=== PATIENT | male | born 1985 | race Caucasian/White ===

== ENCOUNTER 2023-01-04 19:19 | Emergency (ER) | payer OTHER, SELFPAY ==
[2023-01-04] VITALS (8 sets, daily range): BP systolic 95–124; BP diastolic 47–74; PULSE 98–103; RESP 17–21; TEMP 37; O2SAT 95–98; BMI 16.5
--- NOTE | 2023-01-04 19:35 | PC.NURSE ---
this nurse triaged pt for ED. pt placed in room 7, put on a monitor and report given to RENETTA Keenan
[2023-01-04 19:59] LABS: Basophils % 0.4 % (0.1-2.0); Eosinophils % 0.2 % (0.1-12.0); Lymphocytes # 0.7 K/mm3 (0.7-4.5); Lymphocytes % 6.1 % (10-50); Mean Corpuscular HGB Conc 30.6 g/dL (31.8-35.4); Mean Corpuscular Hemoglobin 17.9 pg (27.0-31.2); Mean Corpuscular Volume 58.6 fl (80-94); Monocytes # 0.5 K/mm3 (0.1-1.0); Monocytes % 4.6 % (1.7-9.3); Neutrophils # 9.5 K/mm3 (1.8-7.8); Neutrophils % 88.8 % (37.0-80.0); Platelet Count 467 K/mm3 (142-424); Red Blood Count 3.47 M/mm3 (4.60-6.20); Red Cell Distribution Width 16.9 % (11.5-17.5); White Blood Count 10.7 K/mm3 (4.8-10.8)
[2023-01-04 20:05] LABS: Alanine Aminotransferase 36 U/L (12-78); Albumin Level 3.5 g/dl (3.5-5.0); Albumin/Globulin Ratio 0.9 (1.1-1.8); Alkaline Phosphatase 162 U/L (38-126); Anion Gap 19.6 mEq/L (5-15); Aspartate Amino Transferase 32 U/L (17-59); Bilirubin,Total 0.3 mg/dl (0.2-1.3); Blood Urea Nitrogen 13 mg/dl (9-20); Calcium 7.9 mg/dl (8.4-10.2); Carbon Dioxide 24 mmol/L (22.0-30.0); Chloride 90 mmol/L (98-107); Creatinine Clearance Estimated 101 mL/min (50-200); Estimated Glomerular Filt Rate 110 ml/min (>60); GFR (African American) 133 ML/MIN (>60); Globulin 3.8 g/dL (1.3-3.2); Glucose 340 mg/dl (74-100); Potassium 3.6 mmoL/L (3.5-5.1); Sodium 130 mmol/L (136-145); Total Protein,Serum 7.3 g/dl (6.3-8.2)
[2023-01-04 20:09] LABS: Lactic Acid 2.2 mmol/L (0.7-2.1)
[2023-01-04 20:10] LABS: C-Reactive Protein 197.7 mg/L (0-4)
[2023-01-04 20:13] LABS: Hematocrit 20.3 % (42.0-52.0); Hemoglobin 6.2 g/dL (14.1-18.0)
[2023-01-04 20:14] LABS: MANUAL DIFFERENTIAL MANUAL DIFFERENTIAL (MANUAL DIFF)
[2023-01-04 20:23] LABS: Procalcitonin 0.169 ng/mL (0.0-2.0)
--- NOTE | 2023-01-04 20:27 | CT_ITS ---
PROCEDURE INFORMATION: Exam: CT Abdomen And Pelvis With Contrast Exam date and time: 01/04/2023 8:57 PM Age: 37 years old Clinical indication: Nausea and vomiting; Prior surgery; Surgery date: 1-6 months; Surgery type: Colon resection 2022; Patient HX: HX colon cancer; Additional info: N/v/d TECHNIQUE: Imaging protocol: Computed tomography of the abdomen and pelvis with contrast. Radiation optimization: All CT scans at this facility use at least one of these dose optimization techniques: automated exposure control; mA and/or kV adjustment per patient size (includes targeted exams where dose is matched to clinical indication); or iterative reconstruction. Contrast material: ISOVUE; Contrast volume: 75 ml; Contrast route: IV; REPORTING DATA: Count of CT and Cardiac NM exams in prior 12 months: This patient has received 0 known CTs and 0 known cardiac nuclear medicine studies in the 12 months prior to the current study. COMPARISON: No relevant prior studies available. FINDINGS: Liver: Normal. No mass. Gallbladder and bile ducts: Post cholecystectomy change. Pancreas: Normal enhancement. No ductal dilation. Spleen: There are multiple splenic calcifications likely on the basis of prior granulomatous exposure. Adrenal glands: No mass. Kidneys and ureters: 14 mm left renal cyst. No hydronephrosis. Stomach and bowel: Postprocedural changes status post partial colectomy. 5.8 cm fat containing left abdominal peristomal hernia. No obstruction. Appendix: No evidence of appendicitis. Intraperitoneal space: No significant fluid collection. No free air. Vasculature: No abdominal aortic aneurysm. Lymph nodes: No enlarged lymph nodes. Urinary bladder: Urinary bladder wall is thickened measuring 9 mm. Reproductive: No acute abnormality. Bones/joints: No acute fracture. Soft tissues: Fat stranding within the inferior left paracolic gutter extending into the pelvis and presacral space where there indistinct fat planes. Extensive subcutaneous stranding involving the medial gluteal soft tissues which is partially visualized. Partially visualized gynecomastia. IMPRESSION: 1. Fat stranding within the inferior left paracolic gutter extending into the pelvis and presacral space where there indistinct fat planes and also involving the upper midline gluteal soft tissues which may in part be postprocedural however would be difficult to exclude a superimposed infectious/inflammatory process or recurrent or residual neoplasm. Prior exams are not available for comparison. 2. Urinary bladder wall is thickened which may also be postprocedural however correlation with UA is recommended. 3. Extensive subcutaneous stranding involving the medial gluteal soft tissues which is partially visualized.
--- NOTE | 2023-01-04 20:28 | PC.NURSE ---
notified concepcion [facility]&H 6.2 20.3
[2023-01-04 20:33] LABS: Acetone, Serum (Rapid) None Detected (None Detect)
[2023-01-04 20:52] LABS: Erythrocyte Sedimentation Rate > 140 mm/hr (0-15)
[2023-01-04 21:00] LABS: Anisocytosis 1+; Hypochromasia 2+; Lymphocytes % 6 % (10-50); Microcytosis 3+; Monocytes % 5 % (2-9); Neutrophils % 89 % (42-76); Platelet Estimate Normal; Total Cells Counted 100
[2023-01-04 21:08] LABS: Coronavirus 19, PCR Not Detected (NotDetected); Influenza A, PCR Not Detected (NotDetected); Influenza B, PCR Not Detected (NotDetected)
--- NOTE | 2023-01-04 21:33 | PC.NURSE ---
Spoke with Bon in Pharmacy advising consult on vancomycin
--- NOTE | 2023-01-04 21:42 | HMH.EDSKAF ---
Discharge Plan Disposition Patient Disposition: Xfer Short-Term Hosp Prescriptions Prescriptions: No Action metformin 500 mg Tablet 1,000 mg PO BID Referrals Follow up/Referrals: Provider,Referral, MD [Primary Care Provider] - See instructions Clinical Impressions Clinical Impression: Xu's gangrene, Severe sepsis with acute organ dysfunction, Diabetes mellitus, Anemia Discharge ED Provider: Marysol (ED)Jacob Skin/Abscess/FB HPI General Chief complaint: Skin/Abscess/Foreign Body Stated complaint: cyst on tail Time Seen by Provider: 01/04/23 21:00 Mode of Arrival: Wheelchair Source of Information: Patient and Medical Record Limitations: No Limitations Description of Symptoms (Recalled from ER Triage Doc. by RN): pt c/o n/v/d, body aches, chills, fever ,and cyst on back. 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 Social History Smoking Status: Current every day smoker alcohol intake: never current occupational status: unemployed Travel in the last 8 weeks: Inside the [facility] ROS Obtained: Yes All systems reviewed & no additional complaints except as documented Physical Exam General General appearance: alert Head Head exam: normocephalic Eye Eye exam: Present other (pale conj); Absent scleral icterus ENT ENT exam: Present mucous membranes dry Neck Neck exam: Present trachea midline Respiratory Respiratory exam: Present normal lung sounds bilaterally; Absent respiratory distress Cardiovascular Cardiovascular exam: Present tachycardia Abdominal Exam Abdominal exam: Present soft and other (colostomy) Rectal Exam comment: draining abscess with extnesion to perineum and scrotal area - prob fourniers Neurological Exam Neurological exam: Present alert, oriented X3 and CN II-XII intact Skin Skin exam: Present other (abscess coccyx area ); Absent rash Medical Decision Making Medical Records Medical records reviewed: Yes I reviewed the patient's medical records. Thuan Inquiry Pt receiving controlled substance: No Vital Signs: 01/04/23 19:20 Temperature 98.6 F Temperature Source Oral Pulse Rate [Left] 102 H Respiratory Rate 21 Blood Pressure [Right Arm] 119/56 L Blood Pressure Mean [Right Arm] 77 02 Sat by Pulse Oximetry 98 Lab Data Lab results reviewed: Yes I reviewed the patient's lab results. Lab Results 01/04/23 19:41: SARS-CoV-2 (PCR) Not detected, Influenza A Untype (PCR) Not detected, Influenza Type B (PCR) Not detected 01/04/23 19:48: WBC 10.7, RBC 3.47 L, Hgb 6.2 L*, Hct 20.3 L*, MCV 58.6 L, MCH 17.9 L, MCHC 30.6 L, RDW 16.9, Plt Count 467 H, MPV 9.0, Neut % (Auto) 88.8 H, Lymph % (Auto) 6.1 L, [place] % (Auto) 4.6, Eos % (Auto) 0.2, Baso % (Auto) 0.4, Neut # (Auto) 9.5 H, Lymph # (Auto) 0.7, [place] # (Auto) 0.5, Eos # (Auto) 0.0, Baso # (Auto) 0.0, Total Counted 100, Neutrophils % (Manual) 89 H, Lymphocytes % (Manual) 6 L, Monocytes % (Manual) 5, Platelet Estimate Normal, RBC Morphology Not Reportable, Hypochromasia 2+, Anisocytosis 1+, Microcytosis 3+, ESR > 140 H 01/04/23 19:48: Sodium 130 L, Potassium 3.6, Chloride 90 L, Carbon Dioxide 24, Anion Gap 19.6 H, BUN 13, Creatinine 0.80, Estimated Creat Clear 101, Estimated GFR 110, Est GFR ( Amer) 133, Glucose
--- NOTE | 2023-01-04 21:53 | PC.NURSE ---
called for possible transfer
--- NOTE | 2023-01-04 21:54 | PC.NURSE ---
concepcion on phone with dr acosta @ [place]
--- NOTE | 2023-01-04 21:58 | PC.NURSE ---
Dr. Gregg informed nurse of accepted to by surgeon Dr. Moncada. reported that the patient needs to be at sooner rather than later becaue of the risk for deterioration.
--- NOTE | 2023-01-04 22:01 | PC.NURSE ---
spoke with Leo at [facility] who stated that their other EMS crew is out of [place] and wont return for at least another hour and a half. notified and ordered this nurse to call [facility].
--- NOTE | 2023-01-04 22:05 | PC.NURSE ---
spoke with lara at [facility] for weather check. stated will call back with update
--- NOTE | 2023-01-04 22:12 | PC.NURSE ---
[place] [facility] with [facility] accepted with flight time of 36 minutes
--- NOTE | 2023-01-04 22:24 | PC.NURSE ---
report called to Berta, battery charger nurse at ER
--- NOTE | 2023-01-04 23:01 | PC.NURSE ---
[facility] at bedside. Report given per Aminata.
--- NOTE | 2023-01-04 23:12 | PC.NURSE ---
[facility] at bedside with pt
[2023-01-04 23:55] LABS: Reflex Lactic Add Lactic Reflex
== END 2023-01-04 23:21 | disposition short-term general hospital (02) ==
PROVIDERS: Emergency Provider Emergency Medicine
DX: A41.9 Sepsis, unspecified organism (principal); R65.20 Severe sepsis without septic shock; E11.52 Type 2 diabetes mellitus with diabetic peripheral angiopathy with gangrene; Z93.3 Colostomy status; F17.200 Nicotine dependence, unspecified, uncomplicated
CPT/HCPCS: 74177; 80053; 82009; 83605; 84145; 85007; 85025; 85651; 86140; 86850; 87040; 87070; 87077; 87186; 87205; 87636; 96361; 96365; 96366; 96375; 99285; C9803; J2405; J3370; Q9967; U0003; U0005

== ENCOUNTER 2023-09-09 14:00 | Emergency (ER) | payer OTHER, SELFPAY ==
[2023-09-09] VITALS (7 sets, daily range): BP systolic 111–142; BP diastolic 64–92; PULSE 66–89; RESP 18–24; TEMP 36.6–36.7; O2SAT 95–98; BMI 35.4
--- NOTE | 2023-09-09 13:58 | ECG_ITS ---
APPROVED REPORT Exam: Resting ECG HR:83 bpm ECG Measurements Heart Rate 83 AXES NV 153 P 66 QRSd 95 QRS 70 QT 365 T 55 QTc 404 Conclusion SINUS RHYTHM NORMAL ECG UNCONFIRMED REPORT Electronically signed by : Collins Arias MD 09/11/2023 16:44:17
--- NOTE | 2023-09-09 14:09 | XR_ITS ---
PROCEDURE INFORMATION: Exam: XR Chest Exam date and time: 09/09/2023 2:09 PM Age: 37 years old Clinical indication: Cough TECHNIQUE: Imaging protocol: Radiologic exam of the chest. Views: 1 view. COMPARISON: CT ABDOMEN PELVIS W CON 01/04/2023 8:57 PM FINDINGS: Tubes, catheters and devices: Port-A-Cath . Lungs: Unremarkable. No consolidation. Pleural spaces: Unremarkable. No pleural effusion. No pneumothorax. Heart/Mediastinum: Unremarkable. No cardiomegaly. Bones/joints: Unremarkable. IMPRESSION: No evidence of acute cardiopulmonary disease.
[2023-09-09 14:19] LABS: Coronavirus 19, PCR Not Detected (NotDetected); Influenza A, PCR Not Detected (NotDetected); Influenza B, PCR Not Detected (NotDetected)
[2023-09-09 14:23] LABS: Chloride 103 mmol/L (98-107); Potassium 4.1 mmoL/L (3.5-5.1); Sodium 137 mmol/L (136-145)
[2023-09-09 14:24] LABS: Basophils # 0.1 K/mm3 (0-0.2); Basophils % 1.3 % (0.1-2.0); Eosinophils # 0.4 K/mm3 (0.0-0.4); Eosinophils % 5.1 % (0.1-12.0); Hematocrit 31.2 % (42.0-52.0); Hemoglobin 9.9 g/dL (14.1-18.0); Lymphocytes % 14.2 % (10-50); Mean Corpuscular HGB Conc 31.6 g/dL (31.8-35.4); Mean Corpuscular Hemoglobin 20.5 pg (27.0-31.2); Mean Corpuscular Volume 64.9 fl (80-94); Mean Platelet Volume 7.9 fl (7.4-10.4); Monocytes # 0.4 K/mm3 (0.1-1.0); Monocytes % 6.3 % (1.7-9.3); Neutrophils # 5.1 K/mm3 (1.8-7.8); Platelet Count 397 K/mm3 (142-424)
[2023-09-09 14:26] LABS: Alanine Aminotransferase 36 U/L (12-78); Albumin/Globulin Ratio 1.2 (1.1-1.8); Alkaline Phosphatase 108 U/L (38-126); Anion Gap 10.1 mEq/L (5-15); Aspartate Amino Transferase 31 U/L (17-59); Bilirubin,Total 0.4 mg/dl (0.2-1.3); Blood Urea Nitrogen 10 mg/dl (9-20); Carbon Dioxide 28 mmol/L (22.0-30.0); Creatinine Clearance Estimated 176 mL/min (50-200); Estimated Glomerular Filt Rate 96 ml/min (>60); GFR (African American) 116 ML/MIN (>60); Globulin 3.4 g/dL (1.3-3.2); Total Protein,Serum 7.4 g/dl (6.3-8.2)
[2023-09-09 14:27] LABS: Calcium 8.5 mg/dl (8.4-10.2); Glucose 229 mg/dl (74-100)
[2023-09-09 14:40] LABS: Troponin I < 0.01 ng/ml (0.00-0.034)
--- NOTE | 2023-09-09 15:16 | HMH.EDGENADL ---
Discharge Plan Disposition Patient Disposition: Home, Self-Care Prescriptions Prescriptions: No Action metformin 500 mg Tablet 1,000 mg PO BID Referrals Follow up/Referrals: Provider,Referral, [Primary Care Provider] - See instructions Activity Restrictions/Add. Instructions Additional Instructions/Restrictions: No evidence of emergent medical condition today. Your symptoms are consistent with a viral syndrome please continue to take Tylenol and ibuprofen as needed for your symptoms return to the emergency department with any significant worsening or other concerns Clinical Impressions Clinical Impression: Migraine, Viral syndrome Discharge ED Provider: Bernardo Jc General Adult HPI General Chief complaint: Upper Respiratory Infection Stated complaint: chest pain Time Seen by Provider: 09/09/23 15:09 Mode of Arrival: Ambulatory Limitations: No Limitations Description of Symptoms (Recalled from ER Triage Doc. by RN): PT REPORTS COUGH, CONGESTION, HEADACHE AND CHEST PAIN FROM COUGHING X 3 DAYS. History of Present Illness HPI narrative: Patient is a 37-year-old male with a history of colon cancer status post colon resection chemo and radiation in remission who presents today with 4 days of cough headache congestion body aches. Has had many positive sick contacts. States his major complaint is his headache today is been slowly worsening no focal neurologic deficits no significant neck stiffness etc. Has been taking some DayQuil and NyQuil at home without any significant improvement. Related Data Home Medications Medication Instructions Recorded Confirmed metformin 500 mg tablet 1,000 mg PO BID Diabetes 01/04/23 01/04/23 Allergies Allergy/AdvReac Type Severity Reaction Status Date / Time NO KNOWN ALLERGIES Allergy Uncoded 07/31/17 14:08 [facility] Disclaimer: The information contained in this section may have been updated after the patient was seen, as this information can be updated by other users. Social History (Updated 01/04/23 @ 22:19 by Jacob Gregg (ED)MD) Smoking Status: Former smoker alcohol intake: never current occupational status: unemployed Travel in the last 8 weeks: Inside the [place] ROS Obtained: Yes All systems reviewed & no additional complaints except as documented Physical Exam General General appearance: alert and in no apparent distress Respiratory Respiratory exam: Present normal lung sounds bilaterally; Absent respiratory distress Cardiovascular Cardiovascular exam: Present tachycardia (Heart rate 110 on my exam) Abdominal Exam Abdominal exam: Present soft; Absent distention or tenderness Neurological Exam Neurological exam: Present alert and oriented X3 Medical Decision Making Thuan Inquiry Pt receiving controlled substance: No Vital Signs: 09/09/23 14:01 09/09/23 14:31 09/09/23 15:00 Temperature 97.9 F Temperature Source Oral Pulse Rate 85 82 Pulse Rate [Radial] 89 Respiratory Rate 18 24 20 Blood Pressure 134/79 126/83 Blood Pressure [Right Arm] 142/92 H Blood Pressure Mean 99 97 Blood Pressure Mean [Right Arm] 108 Blood Pressure Source [Right Arm] Automatic Cuff Blood Pressure Position [Right Arm] Sitting 02 Sat by Pulse Oximetry 98 97 98 Oxygen Delivery Method Room Air 09/09/23 16:00 Temperature Temperature Source Pulse Rate 70 Pulse Rate [Radial] Respiratory Rate 18 Blood Pressure 118/71 Blood Pressure [Right Arm] Blood Pressure Mean 86 Blood Pressure Mean [Right Arm] Blood Pressure Source [Right Arm] Blood Pressure Position [Right Arm] 02 Sat by Pulse Oximetry 95 Oxygen Delivery Method Lab Data Lab results reviewed: Yes I reviewed the patient's lab results. Lab Results 09/09/23 14:00: WBC 7.0, RBC 4.80, Hgb 9.9 L, Hct 31.2 L, MCV 64.9 L, MCH 20.5 L, MCHC 31.6 L, RDW 16.0, Plt Count 397, MPV 7.9, Neut % (Auto) 73.0, Lymph % (Auto) 14.2, [place] % (Auto) 6.3, Eos % (Auto) 5.1, Baso % (Auto) 1.3, Neut # (Auto) 5.1, Lymph # (Auto) 1.0, [place] # (Auto) 0.4, Eos # (Auto) 0.4, Baso # (Auto) 0.1, Sodium 137, Potassium 4.1, Chloride 103, Carbon Dioxide 28, Anion Gap 10.1, BUN 10, Creatinine 0.90, Estimated Creat Clear 176, Estimated GFR 96, Est GFR ( Amer) 116, Glucose 229 H, Calcium 8.5, Total Bilirubin 0.4, AST 31, ALT 36, Alkaline Phosphatase 108, Troponin I < 0.01, Total Protein 7.4, Albumin 4.0, Globulin 3.4 H, Albumin/Globulin Ratio 1.2, SARS-CoV-2 (PCR) Not detected, Influenza A Untype (PCR) Not detected, Influenza Type B (PCR) Not detected 09/09/23 14:00 09/09/23 14:00 Orders (Tests/Meds): ED MEDICATIONS Discontinued Medications Generic Name Dose Route Start Last Admin Trade Name Lorraine PRN Reason Stop Dose Admin Diphenhydramine HCl 25 mg 09/09/23 15:14 09/09/23 15:20 Diphenhydramine 50mg/Ml Vial IV 09/09/23 15:15 25 mg ONCE ONE Administration Lactated Ringer's 1,000 mls @ 999 mls/hr 09/09/23 15:15 09/09/23 15:21 Lactated Ringer's 1000 Ml Bag IV 09/09/23 16:15 999 mls/hr .Q1H1M KAIDEN Administration Ketorolac Tromethamine 15 mg 09/09/23 15:14 09/09/23 15:21 Ketorolac 30mg/Ml Vial IV 09/09/23 15:15 15 mg ONCE ONE Administration Prochlorperazine Edisylate 10 mg 09/09/23 15:14 09/09/23 15:20 Prochlorperazine 10mg/2ml Vial IV 09/09/23 15:15 10 mg ONCE ONE Administration ORDERS Category Date Time Status XR chest portable Stat Exams 09/09/23 14:09 Completed Complete Blood Count Auto Diff Stat Lab 09/09/23 14:00 Completed Comprehensive Metabolic Panel Stat Lab 09/09/23 14:00 Completed Rapid PCR Covid and Flu A/B Stat Lab 09/09/23 14:00 Completed Troponin I Q3H Lab 09/09/23 17:15 Ordered Troponin I Q3H Lab 09/09/23 20:15 Ordered Troponin I Stat Lab 09/09/23 14:00 Completed ECG initial Besson Routine Y 09/09/23 13:58 Completed Medical Decision Narrative: Patient is a well-appearing 37-year-old male with symptoms consistent with a viral syndrome. He is immunocompetent at this point has had 4 days of symptoms antiviral therapy not indicated in this particular patient as he will be managed in outpatient setting. He is afebrile here looks very well does not consistent with bacterial sepsis. Chest x-ray was performed to person interpreted shows no acute cardiopulmonary abnormality. COVID and flu pending but again will exchange architect with results. His headache is his main complaint today and not concerned about subarachnoid hemorrhage meningitis etc. IV fluids migraine cocktail have been administered will reassess. EKG performed which I first interpreted which shows ventricular rate of 83 normal sinus rhythm no acute ischemic changes or conduction abnormalities normal axis. Nondiagnostic. X-ray performed on first interpreted shows no acute cardiopulmonary emergency. Reassessment 459 patient feels much better serial neurologic exams are normal. No evidence of sepsis pneumonia etc. Supportive care discussed his symptoms today are consistent with a headache in the setting of viral syndrome. No evidence of meningitis etc. He was discharged in stable condition with return precautions and supportive care discussed. Critical Care Critical Care Time Critical Care Time: No
[2023-09-09] MEDS: diphenhydrAMINE 50MG/ML VIAL 25 MG IV (15:20)
[2023-09-09] MEDS: PROCHLORPERAZINE 10MG/2ML VIAL 10 MG IV (15:20)
[2023-09-09] MEDS: LACTATED RINGERS 1000ML 1,000 ML 999 ML IV (15:21)
[2023-09-09] MEDS: KETOROLAC 30MG/ML VIAL 15 MG IV (15:21)
--- NOTE | 2023-09-09 16:46 | PC.NURSE ---
ROUNDED ON PT, MUCH BETTER AFTER MEDICATION. UPDATED ON POC. NO NEEDS AT THIS TIME
== END 2023-09-09 17:04 | disposition home or self-care (01) ==
PROVIDERS: Emergency Provider Emergency Medicine
DX: R07.9 Chest pain, unspecified (principal); G43.909 Migraine, unspecified, not intractable, without status migrainosus; R05.9 Cough, unspecified; R09.81 Nasal congestion; B34.9 Viral infection, unspecified; R00.0 Tachycardia, unspecified; Z87.891 Personal history of nicotine dependence; Z85.038 Personal history of other malignant neoplasm of large intestine
CPT/HCPCS: 71045; 80053; 84484; 85025; 87636; 93005; 96361; 96374; 96375; 99285